=== PATIENT | male | born 1985 | race Two or more races ===

== ENCOUNTER 2018-01-27 17:54 | Emergency (ER) | payer SELFPAY ==
[~2018-01-27] VITALS: Ht 177.8 cm; Wt 83.5 kg
[2018-01-27 17:57] VITALS: BP 117/77
== END 2018-01-27 19:02 | disposition home or self-care (01) ==
LOC: ED 18:50
DX: F41.1 Generalized anxiety disorder (principal); F15.10 Other stimulant abuse, uncomplicated
CPT/HCPCS: 99284